=== PATIENT | male | born 1980 | race Caucasian/White ===

== ENCOUNTER 2020-04-14 20:10 | Observation (INO) | payer OTHER ==
[~2020-04-14] VITALS: Ht 182.9 cm; Wt 104.3 kg
[~2020-04-14 20:10] MED LIST: BUPRENORPHIN-N1 EACH SL; CLEOCIN HCL150 MG PO; LODINE CAP 300300 MG PO; PENICILLIN V P500 MG PO; PERIDEX15 ML MT
[2020-04-14 22:09] LABS: RED BLOOD COUNT 4.91 M/UL (4.20-5.50); WHITE BLOOD COUNT 13.9 K/UL (4.5-11.0)
[2020-04-14 22:24] LABS: BUN/CREATININE RATIO 20 (0-10)
[2020-04-15] MEDS ORDERED: LODINE CAP 300300 MG PO (00:08)
[2020-04-15] MEDS ORDERED: PREDNISONE 50 M50 MG PO (00:08)
[2020-04-15] MEDS ORDERED: AUGMENTIN 875-1 EACH PO (16:54)
== END 2020-04-15 17:51 | disposition home or self-care (01) ==
LOC: ER1 20:10 → M/S 04-15 00:16 → CDU 04-15 00:16 → M/S 04-15 08:34
PROVIDERS: Physician Assistant; ADMIT Internal Medicine
DX: K04.7 Periapical abscess without sinus (principal); K02.9 Dental caries, unspecified; F17.210 Nicotine dependence, cigarettes, uncomplicated; Z23 Encounter for immunization; Z20.822 Contact with and (suspected) exposure to COVID-19
CPT/HCPCS: 70487; 80053; 83605; 85025; 90471; 96365; 96366; 96367; 96375; 96376; 99284; G0378; J0696; J1100; J1885; J2543; J7030; Q9967; U0002